=== PATIENT | female | born 2000 | race Caucasian/White ===

== ENCOUNTER → 2022-12-24 | Outpatient (CLI) | payer BC ==
--- NOTE | 2022-12-25 08:45 | MR ---
PRE AND POSTCONTRAST ENHANCED MRI OF THE BRAIN: CLINICAL HISTORY: Hemiplegic Migraines, Paresthesia, Evaluate for AVM and Mass Contrast: Patient 7.5 mL intravenous Gadavist gadolinium contrast. Multiplanar and multispin-echo imaging of the brain was performed both before and after the administr ation of contrast. The ventricles, basal cisterns and sulci overlying the cerebral convexities are within normal limits. There is no evidence for midline shift or mass effect. Acute intracranial hemorrhage or extra-axial collection is not evident. There are no abnormal areas of increased or decreased signal intensity within the brain parenchyma. Following contrast administration, there is no evidence for pathologic enhancement or enhancing mass. The paranasal sinuses and mastoid air cells are well-aerated. IMPRESSION: Unremarkable pre and postcontrast enhanced MRI of the brain.
== END | disposition home or self-care (01) ==
LOC: RADMRIMAIN 21:15
PROVIDERS: ATTEND Psychiatry & Neurology Neurology
DX: G43.411 Hemiplegic migraine, intractable, with status migrainosus (principal)
CPT/HCPCS: 70553; A9585

== ENCOUNTER → 2022-12-28 | Outpatient (CLI) | payer BC ==
--- NOTE | 2022-12-28 21:57 | MR ---
EXAMINATION TYPE: MR angio head wo con DATE OF EXAM: 12/28/2022 9:46 PM CLINICAL INDICATION:Female, 22 years old with history of G43.411; Hemiplegic Migraines, Paresthesia, Evaluate for AVM and Mass COMPARISON: MR brain [id number] Technical: 3-D [id number] Axial with MIP reconstruction created on a separate workstation.. IV Contrast: None Findings: Vertebral arteries: The vertebral arteries are patent. Vertebral arteries are: Codominant. Basilar artery: The basilar artery is intact. The basilar artery bifurcation is normal. Internal Carotid arteries: The cervical, petrous, cavernous and supraclinoid segments are normal. ORTIZ: Patent with no evidence of aneurysm. ACOM: Present without evidence of aneurysm. MCA: Patent with no evidence of aneurysm. COMMUNITY ARTIST: Patent with no evidence of aneurysm. PCOM: Hypoplastic bilaterally. IMPRESSION: No evidence of aneurysm or significant stenosis. No evidence for arterial venous malformation or mass .
== END | disposition home or self-care (01) ==
LOC: RADMRIMAIN 21:15
PROVIDERS: ATTEND Psychiatry & Neurology Neurology
DX: G43.411 Hemiplegic migraine, intractable, with status migrainosus (principal)
CPT/HCPCS: 70544